=== PATIENT | female | born 1970 | race Caucasian/White ===

== ENCOUNTER 2017-12-28 08:08 | Emergency (ER) | payer MEDICAID, OTHER ==
[~2017-12-28] VITALS: Ht 167.6 cm; Wt 63.7 kg
[~2017-12-28 08:08] MED LIST: HYD25 PO; NAPR-58 PO
[2017-12-28] MEDS ORDERED: LEVE500T53 PO (08:29)
[2017-12-28] MEDS ORDERED: LORazepam 1 MG TABLET PO ONE (08:30)
[2017-12-28] MEDS ORDERED: LevETIRAcetam 250 MG TABLET PO ONE (08:30)
[2017-12-28] MEDS ORDERED: LamoTRIgine 25 MG TABLET PO ONE (08:45)
[2017-12-28 09:56] VITALS: BP 100/54
[2017-12-29] MEDS ORDERED: CITA-106 PO (09:45)
[2017-12-29] MEDS ORDERED: ARIP5TAB8 PO (09:45)
[2017-12-29] MEDS ORDERED: LAMO100 PO (10:14)
== END 2017-12-28 11:08 | disposition home or self-care (01) ==
LOC: EMS 08:12
DX: G40.909 Epilepsy, unspecified, not intractable, without status epilepticus (principal); F17.210 Nicotine dependence, cigarettes, uncomplicated; F15.90 Other stimulant use, unspecified, uncomplicated; F31.9 Bipolar disorder, unspecified; I10 Essential (primary) hypertension; Z79.1 Long term (current) use of non-steroidal anti-inflammatories (NSAID); Z79.899 Other long term (current) drug therapy
CPT/HCPCS: 99283

== ENCOUNTER 2020-10-05 17:30 | Emergency (ER) | payer OTHER ==
[~2020-10-05] VITALS: Ht 170.2 cm; Wt 80.0 kg
[~2020-10-05 17:30] MED LIST changes: +ARIP5TAB37 PO; +CITA-144 PO; -HYD25 PO; +LAMO100 PO; -NAPR-58 PO
[2020-10-05 18:03] VITALS: BP 152/43
[2020-10-05] MEDS ORDERED: HALOPERIDOL 5 MG TABLET PO ONE (18:15)
[2020-10-05] MEDS ORDERED: LORazepam 1 MG TABLET PO ONE (18:15)
== END 2020-10-05 18:32 | disposition left against medical advice (07) ==
LOC: EMS 17:32
DX: F29 Unspecified psychosis not due to a substance or known physiological condition (principal)
CPT/HCPCS: 99284; Z7502; Z7610